=== PATIENT | female | born 1970 | race Two or more races ===

== ENCOUNTER 2025-04-12 02:02 | Emergency (ER) | payer MEDICAID, SELFPAY ==
[2025-04-12 02:12] VITALS: BP 159/95; PULSE 87; RESP 18; TEMP 36.8; O2SAT 96; BMI 34.0
--- NOTE | 2025-04-12 02:20 | XR_ITS ---
Examination: CT abdomen and pelvis without contrast. Coronal 3-D reconstructions. Sagittal 2-D reconstructions. Date and time of exam: April 12, 2025, 0241 hours INDICATIONS: Lower abdominal pain with blood in the stool today CTDI: vol (mGy): 9.94 DLP: (mGycm): 559 Technique: Axial images of the abdomen have been obtained, 3 mm slice thickness Intravenous contrast material has not been administered. Low dose protocols were performed. One or more of the following dose reduction techniques were used; automated exposure control, adjustment of the mA and/or KV according to patient size, use of iterative reconstruction technique. Findings: Pneumonia right base No visualized liver or splenic lesion No gallstones No pancreatic or adrenal mass Bilateral 1 to 2 mm renal calculi, no hydronephrosis or ureteral calculi No pericecal inflammatory change Multiple lymph nodes in the mesentery, the largest 19 mm, 25 mm as well as subcentimeter periaortic lymph nodes and mild edema in the mesentery No bowel obstruction or diverticulitis Urinary bladder intact Probable hemangioma L4 IMPRESSION: Bilateral nonobstructing renal calculi Right base pneumonia Abnormal mesenteric lymphadenopathy, this appearance can relate to mesenteric panniculitis but other etiologies including early lymphoma Hodgkin's disease would be included in the differential 3-month follow-up CT abdomen pelvis strongly recommended
--- NOTE | 2025-04-12 02:21 | PD.EDRME ---
Rapid Medical Screening Exam RME Arrival date/time: 04/12/25 02:02 This is occasional 54-year-old female who came in in the emergency room due to abdominal pain and blood in stool for 3 days with nausea vomiting Chief Complaint: Abdominal Pain Time Seen by Provider: 04/12/25 02:20 Vital signs: Vital Signs Temperature 98.2 F 04/12/25 02:12 Pulse Rate 87 04/12/25 02:12 Respiratory Rate 18 04/12/25 02:12 Blood Pressure 159/95 H 04/12/25 02:12 Pulse Oximetry (%) 96 04/12/25 02:12 Oxygen Delivery Method Room Air 04/12/25 02:12 Exam: Moderate tenderness pelvic area no guarding no rebound no rigidity Clinical Impression: Abdominal pain
[2025-04-12 03:01] LABS: Basophils # (Auto) 0.1 Thou/mm3 (0.0-0.2); Basophils % (Auto) 1 % (0-2.5); Eosinophils # (Auto) 0.2 Thou/mm3 (0.0-0.5); Eosinophils % (Auto) 3 % (0-10); Hematocrit 41.4 % (36.0-46.0); Hemoglobin 14.0 g/dL (12.0-16.0); Immature Granulocytes Auto 0.03 Thou/mm3 (0.00-0.00); Lymphocytes # (Auto) 2.7 Thou/mm3 (1.0-4.8); Lymphocytes % (Auto) 34 % (10-50); Mean Corpuscular HGB Conc 33.8 g/dl (31.0-37.0); Mean Corpuscular Hemoglobin 28.9 pg (25.0-35.0); Mean Corpuscular Volume 85 fL (80-100); Monocytes # (Auto) 0.6 Thou/mm3 (0.0-0.8); Monocytes % (Auto) 7 % (0-12); Neutrophils # (Auto) 4.4 Thou/mm3 (1.8-7.7); Neutrophils % (Auto) 55 % (37-80); Nucleated Red Blood Cell # 0.00 Thou/mm3 (0.00-0.00); Nucleated Red Blood Cell % 0 /100 WBC (0); Platelet Count 225 Thou/mm3 (140-440); RDW Standard Deviation 40.3 fL (36.4-46.3); Red Blood Count 4.85 Miln/mm3 (4.00-5.20); White Blood Count 7.9 Thou/mm3 (3.6-11.0)
[2025-04-12 03:19] LABS: Alanine Aminotransferase 48 U/L (10-49); Albumin, Serum 4.6 gm/dL (3.5-5.0); Albumin/Globulin Ratio 1.5 (1.2-2.2); Alkaline Phosphatase 100 U/L (46-116); Anion Gap 10 (7-16); Aspartate Amino Transferase 25 U/L (0-34); BUN/Creatinine Ratio 19 Ratio (12-20); Bilirubin,Total 0.3 mg/dL (0.3-1.2); Blood Urea Nitrogen 13 mg/dL (9-23); Calcium 9.6 mg/dL (8.3-10.6); Calcium (Corrected) 9.6 mg/dL (8.5-10.1); Carbon Dioxide 26.7 mMol/L (20.0-31.0); Chloride 106 mMol/L (98-107); Creatinine (Component) 0.7 mg/dL (0.6-1.3); Estimated Creatinine Clearance 87.9 mL/min (>60); Globulin 3.1 gm/dL (2.3-3.5); Glucose 110 mg/dL (74-106); Lipase 42 U/L (12-53); Osmolality,Calculated 286 (275-295); Potassium 4.1 mMol/L (3.4-5.1); Sodium 143 mMol/L (136-145); Total Protein 7.7 gm/dL (5.7-8.2); eGFR > 60 See Note
[2025-04-12 03:34] LABS: Collection Type, Urine Clean Catch
[2025-04-12 03:37] LABS: Bilirubin,Urine Negative (Negative); Blood,Urine Negative (Negative); Clarity,Urine Clear (Clear/Hazy); Color,Urine Colorless (Lt Yel-Yel); Glucose, Urine Negative (Negative); Ketones,Urine Negative (Negative); Leukocyte Esterase,Urine Negative (Negative); Nitrite,Urine Negative (Negative); PH,Urine 6.5 (5.0-7.0); Protein,Urine Negative (Neg - Trace); RBC,Urine 1 /hpf (0-3); Specific Gravity,Urine 1.007 (1.001-1.035); Squamous Epithelial Cell,Urine 4 /hpf (0-5); Urobilinogen,Urine Negative mg/dL (0.0-1.0); WBC,Urine 1 /hpf (0-5)
--- NOTE | 2025-04-12 03:38 | PD.EDABDPN ---
ED Abdominal Pain RME/HPI General Chief Complaint: Abdominal Pain Stated complaint: LOWER ABD PAIN, BLOOD IN STOOL Time seen by provider: 04/12/25 02:20 Arrival date/time: 04/12/25 02:02 RME / HPI RME / HPI narrative: 04/12/25 02:02 This is occasional 54-year-old female who came in in the emergency room due to abdominal pain and blood in stool for [address] DIAZ MAIN ED EVALUATION: Patient with Hx of Parkinson's and Schizophrenia presents with suprapubic abdominal pain. Denies any fever although reports chills. No vomiting reported. Additionally, patient notes foul odor to perineal region. Denies vaginal discharge. PMH: Parkinson's Disease, Asthma, Anxiety, Schizophrenia PSH: Hysterectomy Allergies: NKDA Social: Negative Exam: Moderate tenderness pelvic area no guarding no rebound no rigidity Impression: Abdominal pain Related Data Home Medications ?Medication ?Instructions ?Recorded ?Confirmed aripiprazole 30 mg tablet (Abilify) 10 mg PO DAILY ##0 08/19/12 01/10/24 amitriptyline 25 mg tablet 25 mg PO QDAY 01/08/24 01/09/24 fluoxetine 20 mg capsule 20 mg PO QDAY 01/10/24 01/10/24 Previous Rx's ?Medication ?Instructions ?Recorded acetaminophen 300 mg-codeine 15 mg 1 tab PO Q8H PRN pain #20 tabs 04/12/25 tablet lactulose 10 gram/15 mL oral 20 g (30 mL) PO BID constipation 04/12/25 solution #237 mL prednisone 20 mg tablet See Taper PO QDAY 5 days #10 tabs 04/12/25 Allergies Allergy/AdvReac Type Severity Reaction Status Date / Time No Known Allergies Allergy Verified 04/12/25 02:03 Review of Systems Review of Systems Systems Reviewed: All systems reviewed, normal except as documented Past Medical History Past Medical History NEUROLOGIC: Positive Parkinson's Disease (early onset) RESPIRATORY: Positive Asthma (5 months ago) REPRODUCTIVE: Positive Previous Pregnancies PSYCHO/SOCIAL: Positive Schizophrenia and Anxiety OTHER HISTORY: Positive Chicken Pox Family History FAMILY HISTORY: Positive Family Cancer Surgical History SURGICAL: Positive Hysterectomy and Tubal Ligation ED Exam Narrative Physical exam: GEN. APPEARANCE: The patient is alert awake oriented X-3, flat affect, poor historian. Patient has good eye contact. Patient is cooperative. VITALS: All vitals were reviewed and the pulse ox is 96%, which is normal according to my interpretation HEENT: Normocephalic, atraumatic and nontender. Pupils are equal and reactive. Oral mucosa is moist. NECK: Supple, nontender, no meningismus, no JVD. There is no thyromegaly and no lymphadenopathy. CHEST: Nontender on palpation no deformity and no crepitus. CARDIOVASCULAR: Heart regular rhythm, no murmur or gallop rub or extra beats. LUNGS: Clear to auscultation bilaterally with symmetrical chest rise. No laboring tachypnea or wheezing. No intercostal subcostal retraction. No rales and no rhonchi. ABDOMEN: Soft, obese mildly tender to suprapubic region, no guarding or peritoneal findings noted. There are no abnormal masses palpated. No pulsatile masses or bruits. Active and normal bowel sounds. EXTREMITIES: Normal inspection and palpation. No edema. No cyanosis. Patient is able to move all 4 extremities well SKIN: Warm and dry, no rashes noted. MUSCULOSKELETAL: No lumbar or midline bony tenderness. There is no CVA tenderness. No paraspinal muscle spasm or tenderness. NEURO: Cranial nerves II through XII grossly intact. There are no focal neurologic deficits noted. GCS is 15. Slightly slow response time, noted intermittent resting tremor PSYCHIATRIC: Patient is in normal mood and affect, cooperative. LYMPHATICS: No major lymphadenopathy noted. Course Quality Measures none Orders Category Date Time Status CT abdomen pelvis wo con Stat Exams 04/12/25 02:20 Taken CBC Stat Lab 04/12/25 02:52 Completed Comprehensive Metabolic Panel Stat Lab 04/12/25 02:52 Completed HCG Qualitative,Urine Stat Lab 04/12/25 03:29 Completed Lipase Stat Lab 04/12/25 02:52 Completed Urinalysis Stat Lab 04/12/25 03:29 Completed Ketorolac Inj [Toradol Inj] Med 04/12/25 03:52 Discontinued 30 mg IM X1 ONE Vital Signs Vital signs: Vital Signs Temperature 98.2 F 04/12/25 02:12 Pulse Rate 87 04/12/25 02:12 Respiratory Rate 18 04/12/25 02:12 Blood Pressure 159/95 H 04/12/25 02:12 Pulse Oximetry (%) 96 04/12/25 02:12 Oxygen Delivery Method Room Air 04/12/25 02:12 Abdominal Pain MDM MDM Narrative MDM Narrative:: Scribe Attestation: Dewayne Maria D Louisa, am scribing for and in the presence of Dr. Hassan. Provider Notation: Although this document has been carefully reviewed, there may still be some phonetic and other typographical errors. These errors are purely grammatical due to imperfections in the software program and should not be construed in any way to compromise the substance of the patient's medical care during this visit. Patient with Hx of Parkinson's and Schizophrenia presents with suprapubic abdominal pain. Denies any fever although reports chills. No vomiting reported. Additionally, patient notes foul odor to perineal region. Please see PE findings. Laboratory findings demonstrated normal WBC, no anemia or thrombocytopenia, no left shift or bandemia. Serum chemistries were unremarkable. UA also within normal limits. Patient underwent CT scan demonstrating messenteric paniculitis. Additional findings include constipation, fatty liver, and hemangioma within L-4 vertebral body. Patient willbe placed on bowel regimen, short course of steroid, with recommended close f/u with PMD. Patient data External records reviewed:: [facility] previous records (Reviewed prior ED records from 12/23/23. Patient was seen for Dental caries.) Clinical information provided by:: patient Social determinants that could affect healthcare access:: none Patient has the following chronic illnesses:: Parkinson's Disease, Asthma, Anxiety, Schizophrenia How is presenting disease/condition affected by chronic disease/condition?: exacerbated by Evaluation data The following diagnostics were reviewed and interpreted by me:: lab results and radiology exam(s) Lab and/or radiology exams considered but not ordered:: None Interpretation Summary: RADIOLOGY Abdomen/Pelvis CT: Findings: The lung bases demonstrate ill-defined alveolar densities in the right lower lobe with air bronchograms. Additionally, there is minimal subsegmental scarring seen at the right middle lobe and lingula, along with mild heterogeneous attenuation of the lower lungs, suggestive of small airways disease. A small hiatal hernia is also present. The liver shows fatty infiltration. The gallbladder, spleen, pancreas, and adrenals are unremarkable. Nonobstructing bilateral renal calculi are seen, with the largest measuring 1.8 mm in the right kidney. No evidence of bowel obstruction. The appendix is within normal limits. The colon contains a moderate amount of fecal material, and there is mild diffuse mesenteric fat stranding at its root with a few prominent mesenteric lymph nodes. The aorta and retroperitoneum are unremarkable. The urinary bladder is unremarkable. Calcific densities, likely representing phleboliths, are noted in the pelvis. There is no free fluid or free air. Degenerative changes are identified in the spine, and a small hemangioma is present at the L4 vertebral body. Divarication of both recti is noted in the abdominal wall. Impression: 1. No evidence of bowel obstruction, free air or fluid collection. 2. Findings suggestive of mild mesenteric panniculitis. Recommend follow-up CT abdomen/pelvis in 1 year to reevaluate this finding. 3. Moderate constipation. 4. Nonobstructing bilateral renal calculi as described. 5. Consolidation in the right lower lobe with air bronchograms may represent atelectasis and/or pneumonia. 6. Other findings as described above. Recommend clinical correlation and follow-up. Medications / Prescriptions Medications or Prescriptions considered but not ordered:: None Medication administrations:: Medication Administration History Discontinued Medications Ketorolac Tromethamine (Ketorolac Inj 30 Mg/Ml Vial) 30 mg IM X1 ONE Stop: 04/12/25 03:53 Last Admin: 04/12/25 04:41 Dose: 30 mg Documented By: AC See above if any Consultations Consultation(s) initiated? (list below): No Diagnosis Differential diagnosis abdominal pain: abdominal pain, constipation, diverticulitis, gastroenteritis and small bowel obstruction Most likely diagnosis given after review of the tests above:: Mesenteric panniculitis Admission Indicated Admission indicated?: not indicated Explain why admission is indicated or not indicated:: Patient does not meet admission criteria Admission Request Was there a request for admission?: No Disposition Plan Disposition Plan: Discharge Discharge Attestation Discharge Attestation: The patient and all family members were given an opportunity to ask questions and understood the discharge instructions. Discharge instructions specifically effects, indications for sooner follow up or return to the emergency department, and the expected course of current diagnosis. Patient condition: Stable Discharge Plan Plan Patient Disposition: HOME (Self Care) Discharge Disposition comment: Stable Prescriptions/Referrals Prescriptions/Med Rec: No Action aripiprazole [Abilify] 30 MG tablet 10 mg PO DAILY Qty: 0 amitriptyline 25 mg Tablet 25 mg PO QDAY Rx Instructions: at night fluoxetine 20 mg Capsule 20 mg PO QDAY Referrals: Stan Chung MD [Primary Care Provider, Family Practice] - In 1 week Problem List Clinical Impression: Mesenteric panniculitis Patient/Caregiver Discharge Instructions Print Language: Z[place]ian Stand Alone Forms: [employer] Award Info., Patient Portal Info Letter
[2025-04-12 03:54] LABS: HCG Qualitative,Urine Negative
--- NOTE | 2025-04-12 04:01 | PRELIM_ITS ---
CT scan of the abdomen and pelvis without intravenous contrast (axial sections with sagittal and coronal reformats). April 12, 2025 at 0241 hours Clinical History: Abdominal pain. Comparison: No prior study is available for comparison. Findings: The lung bases demonstrate ill-defined alveolar densities in the right lower lobe with air bronchograms. Additionally, there is minimal subsegmental scarring seen at the right middle lobe and lingula, along with mild heterogeneous attenuation of the lower lungs, suggestive of small airways disease. A small hiatal hernia is also present. The liver shows fatty infiltration. The gallbladder, spleen, pancreas, and adrenals are unremarkable. Nonobstructing bilateral renal calculi are seen, with the largest measuring 1.8 mm in the right kidney. No evidence of bowel obstruction. The appendix is within normal limits. The colon contains a moderate amount of fecal material, and there is mild diffuse mesenteric fat stranding at its root with a few prominent mesenteric lymph nodes. The aorta and retroperitoneum are unremarkable. The urinary bladder is unremarkable. Calcific densities, likely representing phleboliths, are noted in the pelvis. There is no free fluid or free air. Degenerative changes are id entified in the spine, and a small hemangioma is present at the L4 vertebral body. Divarication of both recti is noted in the abdominal wall. Impression: 1. No evidence of bowel obstruction, free air or fluid collection. 2. Findings suggestive of mild mesenteric panniculitis. Recommend follow-up CT abdomen/pelvis in 1 year to reevaluate this finding. 3. Moderate constipation. 4. Nonobstructing bilateral renal calculi as described. 5. Consolidation in the right lower lobe with air bronchograms may represent atelectasis and/or pneumonia. 6. Other findings as described above. Recommend clinical correlation and follow-up. Report Electronically Signed By: Raoul Lindsey 04/12/2025 4:00:30 AM [EST]
[2025-04-12] MEDS: KETOROLAC INJ 30 MG/ML VIAL IM (04:41)
== END 2025-04-12 05:12 | disposition home or self-care (01) ==
PROVIDERS: Nurse Practitioner Family; Emergency Provider Emergency Medicine; PCP Family Medicine
DX: K65.4 Sclerosing mesenteritis (principal); K59.00 Constipation, unspecified; N20.0 Calculus of kidney
CPT/HCPCS: 36415; 74176; 80053; 81001; 81025; 83690; 85025; 96372; 99283; J1885